=== PATIENT | female | born 1995 | race Caucasian/White ===

== ENCOUNTER 2017-11-11 06:23 | Emergency (ER) | payer OTHER, MEDICAID ==
[2017-11-11 06:58] LABS: URINE BLOOD (Dip) POC Trace-intact (NEGATIVE); URINE GLUCOSE (Dip) POC Negative (NEGATIVE); URINE KETONES (Dip) POC Negative (NEGATIVE); URINE LEUKOCYTE EST (Dip) POC Trace (NEGATIVE); URINE NITRITE (Dip) POC Negative (NEGATIVE); URINE TOTAL PROTEIN POC Trace (NEGATIVE)
[2017-11-11] MEDS: SOD CHLORIDE 0.9% 1,000 ML IV (07:09)
[2017-11-11] MEDS: KETOROLAC 30 MG INJ IV (07:09)
[2017-11-11] MEDS: METOCLOPRAMIDE 10 MG INJ IV (07:09)
== END 2017-11-11 08:12 | disposition home or self-care (01) ==
LOC: FTE 06:23
DX: R51 Headache (principal)
CPT/HCPCS: 81003; 81025; 96374; 96375; 99284-25

== ENCOUNTER 2018-06-26 21:00 | Emergency (ER) | payer OTHER ==
[2018-06-26] MEDS: ACETAMINOPHEN 500 MG TAB PO (23:02)
== END 2018-06-26 23:35 | disposition home or self-care (01) ==
LOC: FTE 21:00
DX: O99.512 Diseases of the respiratory system complicating pregnancy, second trimester (principal); J03.90 Acute tonsillitis, unspecified; J32.9 Chronic sinusitis, unspecified; Z3A.26 26 weeks gestation of pregnancy
CPT/HCPCS: 99283; Z7610

== ENCOUNTER 2018-06-26 21:39 | Outpatient (CLI) | payer OTHER | END 2018-06-26 22:20 | disposition home or self-care (01) | LOC: OBT 21:39 → L-D 21:40 → OBT 22:20 | DX: O98.512 Other viral diseases complicating pregnancy, second trimester (principal); B34.9 Viral infection, unspecified; Z3A.26 26 weeks gestation of pregnancy | CPT/HCPCS: Z7500 ==

== ENCOUNTER 2018-09-14 11:24 | Outpatient (CLI) | payer OTHER | END 2018-09-14 12:49 | disposition home or self-care (01) | LOC: OBT 11:24 → L-D 11:25 → OBT 12:49 | DX: O26.893 Other specified pregnancy related conditions, third trimester (principal); R05 Cough; R10.2 Pelvic and perineal pain; Z3A.37 37 weeks gestation of pregnancy | CPT/HCPCS: 76818 ==

== ENCOUNTER 2018-09-23 10:43 | Inpatient (IN) | payer OTHER ==
[2018-09-23] MEDS ORDERED: CARBOPROST 250 MCG INJ IM (12:30)
[2018-09-23] MEDS ORDERED: OXYTOCIN 30 UNITS/LR 500 ML IV (12:30)
[2018-09-23] MEDS ORDERED: MISOPROSTOL 200 MCG TAB PR (12:30)
[2018-09-23] MEDS ORDERED: LIDOCAINE 1% (MPF) 30 ML INJ INJ (12:30)
[2018-09-23] MEDS ORDERED: BUTORPHANOL 2 MG INJ IV ×2 (12:30)
[2018-09-23] MEDS ORDERED: METHYLERGONOVINE 0.2 MG INJ IM (12:30)
[2018-09-23] MEDS: LACTATED RINGER'S 1,000 ML IV (13:29)
[2018-09-23] MEDS: AMPICILLIN 2 GM/NS (PMX) 100 ML IV (13:34)
[2018-09-23 13:54] LABS: ADD MAN DIFF? NO
[2018-09-23 13:55] LABS: BASOPHIL # 0.1 10^3/ul (0.0-0.1); BASOPHILS % 0.3 % (0.0-2.0); EOSINOPHILS % 0.2 % (0.0-7.0); HEMATOCRIT 41.7 % (37.0-47.0); HEMOGLOBIN 13.9 g/dl (12.0-16.0); LYMPHOCYTES % 18.7 % (15.0-51.0); MEAN CORPUSCULAR HEMOGLOBIN 30.8 pg (29.0-33.0); MEAN CORPUSCULAR HGB CONC 33.3 g/dl (32.0-37.0); MEAN CORPUSCULAR VOLUME 92.3 fl (82.0-101.0); MEAN PLATELET VOLUME 11.7 fl (7.4-10.4); MONOCYTE # 0.7 10^3/ul (0.3-0.9); MONOCYTES % 4.2 % (0.0-11.0); NEUTROPHIL # 12.1 10^3/ul (1.6-7.5); NEUTROPHILS % 75.5 % (39.0-77.0); PLATELET COUNT 247 10^3/UL (140-415); RED BLOOD COUNT 4.52 10^6/ul (4.20-5.40); RED CELL DISTRIBUTION WIDTH 13.2 % (11.5-14.5)
[2018-09-23 14:15] LABS: INR 0.85; PROTIME 11.7 Sec (11.9-14.9); PT RATIO 0.9
[2018-09-23 14:16] LABS: PARTIAL THROMBOPLASTIN TIME 27.7 Sec (23.0-35.0)
[2018-09-23 15:02] LABS: RAPID PLASMA REAGIN NONREACTIVE (NR)
[2018-09-23] MEDS: DEXTROSE 5%-LR 1,000 ML IV ×2 (16:16→23:04)
[2018-09-23] MEDS: AMPICILLIN 1 GM/NS (PMX) 50 ML IV ×2 (18:18→22:01)
[2018-09-23 20:35] LABS: HEPATITIS B SURFACE ANTIGEN NEGATIVE (NEGATIVE)
[2018-09-23] MEDS ORDERED: FENTAnyl 2MCG/ML-ROPIV 0.2% 100 ML (22:56)
[2018-09-23] MEDS ORDERED: TRIMETHOBENZAMIDE 100 MG/ML VIAL IM (23:30)
[2018-09-23] MEDS ORDERED: NALOXONE (0.4 MG/ML) INJ IV (23:30)
[2018-09-23] MEDS ORDERED: ONDANSETRON 4 MG INJ IV (23:30)
[2018-09-23] MEDS ORDERED: DIPHENHYDRAMINE 50 MG INJ IV (23:30)
[2018-09-24] MEDS: LACTATED RINGER'S 1,000 ML IV (00:55)
[2018-09-24] MEDS: AMPICILLIN 1 GM/NS (PMX) 50 ML IV ×2 (01:56→05:59)
[2018-09-24] MEDS: OXYTOCIN 30 UNITS/LR 500 ML IV ×3 (05:05→11:29)
[2018-09-24] MEDS: FENTAnyl 2MCG/ML-ROPIV 0.2% 100 ML BAG EPI (06:33)
[2018-09-24] MEDS: ACETAMINOPHEN 325 MG TAB PO (08:24)
[2018-09-24] MEDS ORDERED: OXYTOCIN 30 UNITS/LR 500 ML IV (11:30)
[2018-09-24] MEDS ORDERED: MISOPROSTOL 200 MCG TAB PR (11:30)
[2018-09-24] MEDS ORDERED: METHYLERGONOVINE 0.2 MG INJ IM (11:30)
[2018-09-24] MEDS ORDERED: CARBOPROST 250 MCG INJ IM (11:30)
[2018-09-24] MEDS ORDERED: ACETAMINOPHEN 500 MG TAB PO (11:30)
[2018-09-24] MEDS ORDERED: OXYCODONE/ASPIRIN (4.88/325) TAB PO ×2 (11:30)
[2018-09-24] MEDS ORDERED: NACL 0.9% 3 ML SYG IV (11:30)
[2018-09-24] MEDS: BENZOCAINE 20% 56 ML SPRAY TOP (11:53)
[2018-09-24] MEDS: WITCH HAZEL/GLYCERIN PAD PR (11:53)
[2018-09-24] MEDS: IBUPROFEN 600 MG TAB PO ×3 (11:54→23:41)
[2018-09-24] MEDS: SENNA/DOCUSATE NA (8.6MG/50MG) TAB PO (22:29)
[2018-09-25] MEDS: IBUPROFEN 600 MG TAB PO ×4 (05:58→23:44)
[2018-09-25 08:37] LABS: ADD MAN DIFF? NO
[2018-09-25 08:40] LABS: WHITE BLOOD COUNT 13.5 10^3/ul (4.8-10.8)
[2018-09-25 08:40] LABS: BASOPHILS % 0.3 % (0.0-2.0); EOSINOPHILS # 0.1 10^3/ul (0.0-0.5); EOSINOPHILS % 0.7 % (0.0-7.0); HEMOGLOBIN 12.7 g/dl (12.0-16.0); LYMPHOCYTES # 3.1 10^3/ul (0.8-2.9); LYMPHOCYTES % 23.1 % (15.0-51.0); MEAN CORPUSCULAR HEMOGLOBIN 30.5 pg (29.0-33.0); MEAN CORPUSCULAR HGB CONC 33.4 g/dl (32.0-37.0); MEAN CORPUSCULAR VOLUME 91.3 fl (82.0-101.0); MEAN PLATELET VOLUME 11.7 fl (7.4-10.4); MONOCYTE # 0.7 10^3/ul (0.3-0.9); MONOCYTES % 5.5 % (0.0-11.0); NEUTROPHIL # 9.5 10^3/ul (1.6-7.5); NEUTROPHILS % 69.7 % (39.0-77.0); PLATELET COUNT 203 10^3/UL (140-415); RED BLOOD COUNT 4.16 10^6/ul (4.20-5.40); RED CELL DISTRIBUTION WIDTH 13.4 % (11.5-14.5)
[2018-09-26] MEDS: IBUPROFEN 600 MG TAB PO ×2 (05:41→12:03)
[2018-09-26] MEDS: DIPHTH/TET/ACEL PERTUSS (ADULT) 0.5 ML VIAL IM* (10:19)
== END 2018-09-26 13:05 | disposition home or self-care (01) | DRG 807 ==
LOC: OBT 10:43 → L-D 10:43 → PP1 09-24 11:24 → OBT 12:28 → L-D 12:30
PROVIDERS: Obstetrics & Gynecology
PROC: 10E0XZZ Delivery of Products of Conception, External Approach (ICD-10-PCS; principal; 2018-09-24)
DX: O80 Encounter for full-term uncomplicated delivery (principal); Z37.0 Single live birth; Z3A.38 38 weeks gestation of pregnancy
CPT/HCPCS: 62322; 76815; 76818; 85025; 85610; 85730; 86592; 86850; 86900; 86901; 87340; 90715

== ENCOUNTER → 2018-12-20 | Emergency (ER) | payer OTHER | END | disposition home or self-care (01) | LOC: FTE 11:45 | DX: R05 Cough (principal) | CPT/HCPCS: 99282; Z7502 ==

== ENCOUNTER 2019-01-27 07:46 | Emergency (ER) | payer OTHER ==
[2019-01-27] MEDS: KETOROLAC 30 MG INJ IV (08:26)
[2019-01-27] MEDS: SOD CHLORIDE 0.9% 1,000 ML IV (08:26)
[2019-01-27] MEDS: ONDANSETRON 4 MG INJ IV (08:26)
[2019-01-27 08:38] LABS: ADD UMIC YES; UR ASCORBIC ACID NEGATIVE (NEGATIVE); UR BILIRUBIN (Dip) NEGATIVE (NEGATIVE); UR BLOOD (Dip) 1+ mg/dL (NEGATIVE); UR CLARITY SLIGHTLY CLOUDY (CLEAR); UR COLOR YELLOW (YELLOW); UR GLUCOSE (Dip) NEGATIVE (NEGATIVE); UR KETONES (Dip) NEGATIVE (NEGATIVE); UR LEUKOCYTE ESTERASE (Dip) TRACE Leu/ul (NEGATIVE); UR NITRITE (Dip) NEGATIVE (NEGATIVE); UR RBC 4 /HPF (0-5); UR SPECIFIC GRAVITY (Dip) 1.017 (1.003-1.030); UR SQUAMOUS EPITHELIAL CELL FEW /HPF (FEW); UR TOTAL PROTEIN (Dip) NEGATIVE (NEGATIVE); UR UROBILINOGEN (Dip) NEGATIVE (NEGATIVE); UR WBC 5 /HPF (0-5)
== END 2019-01-27 09:24 | disposition home or self-care (01) ==
LOC: FTE 07:46
DX: G43.909 Migraine, unspecified, not intractable, without status migrainosus (principal)
CPT/HCPCS: 36415; 81001; 81025; 96374; 96375; 99284-25